=== PATIENT | female | born 1990 | race Caucasian/White ===

== ENCOUNTER 2023-08-08 09:55 | Inpatient (IN) | payer BC, SELFPAY ==
[2023-08-08] MEDS: LR 1000 IV (10:05)
[2023-08-08 10:08] VITALS: BP 101/56; BMI 33.3
[2023-08-08 10:52] LABS: % Basophils 0.3 % (0-2); % Eosinophils 0.6 % (0-6); % Immature Granulocytes 0.7 % (0-0.5); % Lymphocytes 19.2 % (20.5-51.1); % Monocytes 9.8 % (1.7-9.3); % Neutrophils 69.4 % (42.2-75.2); Absolute Immature Granulocytes 0.1 10^3/uL (0-0.05); Absolute Lymphocytes 1.4 10^3/uL (1.2-3.4); Absolute Monocytes 0.7 10^3/uL (0.1-0.6); Hematocrit 30.8 % (37.0-47.0); Hemoglobin 10.9 g/dL (12.0-16.0); Mean Corp Hgb Conc. 35.4 g/dL (33.0-37.0); Mean Corpuscular Hgb 31.7 pg (27.0-31.0); Mean Corpuscular Volume 89.5 fL (81.0-99.0); Mean Platelet Volume 10.6 fL (7.4-10.4); Nucleated Red Blood Cells % 0 %; Platelet Count 224 10^3/uL (130-400); Red Blood Cell Count 3.44 10^6/uL (4.20-5.40); Red Cell Dist. Width 12.9 % (11.5-14.5); White Blood Cell Count 7.1 10^3/uL (4.8-10.8)
[2023-08-08] MEDS: PITOCIN 30 UNITS/NSS 500 ML IV (11:07)
[2023-08-08] MEDS: FENTANYL/BUPIVACAINE 100 EPIDURAL (13:42)
[2023-08-08] MEDS: SUBLIMAZE 100 MCG EPIDURAL (13:42)
[2023-08-09] MEDS: TYLENOL 650 MG PO (00:13)
[2023-08-09] MEDS: MOTRIN 600 MG PO ×2 (04:15→10:12)
[2023-08-09 04:40] LABS: Hemoglobin 10.9 g/dL (12.0-16.0)
[2023-08-09] MEDS: PRENATAL PLUS 1 TABLET PO (07:50)
[2023-08-09 12:14] LABS: Syphilis/T. pallidum Ab Reflex Negative (Negative)
== END 2023-08-09 17:07 | disposition home or self-care (01) | DRG 807 ==
LOC: LDRP 09:55
PROVIDERS: ADMITTING PHYSICIAN Obstetrics & Gynecology; FAMILY PHYSICIAN Obstetrics & Gynecology
PROC: 3E033VJ Introduction of Other Hormone into Peripheral Vein, Percutaneous Approach (ICD-10-PCS; 2023-08-08)
PROC: 10E0XZZ Delivery of Products of Conception, External Approach (ICD-10-PCS; 2023-08-08)
PROC: 10907ZC Drainage of Amniotic Fluid, Therapeutic from Products of Conception, Via Natural or Artificial Opening (ICD-10-PCS; 2023-08-08)
DX: O99.214 Obesity complicating childbirth (principal); Z37.0 Single live birth; O69.81X0 Labor and delivery complicated by cord around neck, without compression, not applicable or unspecified; Z3A.39 39 weeks gestation of pregnancy
CPT/HCPCS: 85014; 85018; 85025; 86780; 86850; 86900; 86901